=== PATIENT | female | born 2000 | race Native Hawaiian/Other Pacific Islander ===

== ENCOUNTER → 2019-08-11 | Outpatient (CLI) | payer BC, MEDICAID ==
[~2019-08-11] MED LIST: DOCU100C37 PO; FERR325T18 PO; IBUP-1780 PO; OXYC-465 PO; PREN1TAB86 PO
--- NOTE | 2019-08-11 14:46 | Diagnostic Imaging Report ---
INDICATION: Palpable lump in the left breast. COMPARISON: No prior studies are available for comparison. TECHNIQUE: Sonographic interrogation of all four quadrants of the left breast as well as the area of palpable abnormality in the left breast was performed. FINDINGS: There is a macrolobulated, circumscribed hypoechoic solid mass at the 7 o'clock location of the left breast measuring 2.7 x 2.5 x 1.0 cm. This is approximately 5 cm from the nipple. There is some internal vascularity. No posterior acoustic shadowing is seen. No other masses are detected. IMPRESSION: Macrolobulated solid circumscribed mass at the 7 o'clock location of the left breast corresponding to the palpable abnormality. This is most suggestive of a fibroadenoma. A followup left breast ultrasound in 6 months is recommended to confirm stability. ACR BI-RADS Category 3: Probably benign findings. Dictated by: Dictated on workstation # [id number]
== END ==
LOC: RAD 14:04
PROVIDERS: ATTEND Nurse Practitioner Primary Care
DX: N63.24 Unspecified lump in the left breast, lower inner quadrant (principal)
CPT/HCPCS: 76641